=== PATIENT | male | born 1980 | race Caucasian/White ===

== ENCOUNTER 2019-09-09 17:10 | Emergency (ER) | payer OTHER ==
[~2019-09-09] VITALS: Ht 185.4 cm; Wt 88.8 kg
[2019-09-09 17:11] VITALS: BP 142/89
[2019-09-09] MEDS ORDERED: LIDOCAINE-MPF 1%, 5ML ONE (17:57)
== END 2019-09-09 19:06 | disposition home or self-care (01) ==
LOC: ED 18:50
DX: L03.114 Cellulitis of left upper limb (principal)
CPT/HCPCS: 10060; 99283

== ENCOUNTER 2019-09-14 07:51 | Emergency (ER) | payer MEDICAID ==
[~2019-09-14] VITALS: Ht 185.4 cm; Wt 87.0 kg
[2019-09-14] MEDS ORDERED: LIDOCAINE-MPF 2% ,5ML ONE (08:19)
[2019-09-14] MEDS ORDERED: LIDOCAINE-MPF 1%, 5ML ONE (08:20)
[2019-09-14] MEDS ORDERED: LIDOCAINE 1%, 2ML INFIL ONE (08:30)
--- NOTE | 2019-09-14 09:17 | NUR ---
REPORT RECEIVED FROM SERENA CAMPBELL. YOBANY SUPPLIES GIVEN TO RESIDENT .
--- NOTE | 2019-09-14 09:59 | NUR ---
PT GIVEN D/C INSTRUCTIONS, VERBALIZED UNDERSTANDING.
[2019-09-14 10:00] VITALS: BP 137/82
== END 2019-09-14 10:02 | disposition home or self-care (01) ==
LOC: ED 08:36
DX: L02.414 Cutaneous abscess of left upper limb (principal); Z90.49 Acquired absence of other specified parts of digestive tract
CPT/HCPCS: 10060; 99282; J3490

== ENCOUNTER 2020-07-11 21:32 | Emergency (ER) | payer MEDICAID ==
[~2020-07-11] VITALS: Ht 185.4 cm; Wt 80.6 kg
--- NOTE | 2020-07-11 22:44 | NUR ---
NOT IN LOBBY AT THIS TIME
--- NOTE | 2020-07-11 23:13 | NUR ---
NOT IN LOBBY X2
--- NOTE | 2020-07-11 23:48 | NUR ---
PT TO ED C/O EPIGASTRIC PAIN "FEELS LIKE THINGS GET STUCK, THERES A RIDGE IN THERE BREAD & CHIPS CANT GET PAST". PT STATES DECREASED APPETITE D/T DIFFICUTLY "GETTING FOOD TO GO ALL THE WAY DOWN". PT STATES A CHILD HE HAD REFLUX, BUT THIS FEELS DIFFERENTLY. AT . RR EVEN NON LABORED. WILL CTM. CALL LIGHT INREACH.
[2020-07-11] MEDS ORDERED: MAALOX/HYOSCYAMINE/LIDOCAINE 45 ML BTL ONE (23:54)
[2020-07-11 23:57] LABS: BASOPHILS % (AUTO) 1 % (0-1); EOSINOPHILS % (AUTO) 4 % (1-7); LYMPHOCYTES % (AUTO) 42 % (22-44); MEAN CORPUSCULAR HEMOGLOBIN 22.1 pg (27.5-34.5); MEAN PLATELET VOLUME 7.6 fL (7.4-10.4); MONOCYTES % (AUTO) 8 % (2-9); NEUTROPHILS % (AUTO) 46 % (42-75); PLATELET COUNT 390 x10^3/uL (130-400); RED BLOOD COUNT 4.21 x10^6/uL (4.38-5.82); RED CELL DISTRIBUTION WIDTH 18.8 % (9.4-14.8)
[2020-07-11 23:58] LABS: MD NO
[2020-07-12] MEDS ORDERED: MAALOX/HYOSCYAMINE/LIDOCAINE 45 ML BTL PO ONE
[2020-07-12 00:07] LABS: ALANINE AMINOTRANSFERASE 20 U/L (12-78); ANION GAP 4 mmol/L (5-15); CALCIUM 8.3 mg/dL (8.5-10.1); CHLORIDE 110 mmol/L (98-107); CREATININE 0.94 mg/dL (0.7-1.3)
[2020-07-12 00:09] LABS: ALKALINE PHOSPHATASE 111 U/L (45-117); BILIRUBIN,TOTAL 0.4 mg/dL (0.2-1.0); TOTAL PROTEIN 6.6 g/dL (6.4-8.2)
[2020-07-12] MEDS ORDERED: PANTOPRAZOLE 40 MG IV IVPush ONE (00:30)
--- NOTE | 2020-07-12 00:30 | NUR ---
PT DENIES ANY RELIEF C GI COCKTAIL, STATES "ITS HARD TO TELL IF BETTER, SINCE IM NOT EATING ANYTHING". WILL CTM.
[2020-07-12] MEDS ORDERED: PANTOPRAZOLE 40 MG IV ONE (00:44)
[2020-07-12] MEDS ORDERED: OMNIPAQUE 350 MG/ML, 100ML BOTTLE ONE (01:00)
--- NOTE | 2020-07-12 01:05 | NUR ---
PIV ESTB. MED PER MAY. PT AWARE OF PLAN FOR CT. VSS. CALL LIGHT INREACH. WILL CTM.
--- NOTE | 2020-07-12 01:31 | NUR ---
PT TO CT VIA CART
--- NOTE | 2020-07-12 01:38 | NUR ---
PT BACK FROM CT. CALL LIGHT IN REACH.
--- NOTE | 2020-07-12 02:45 | NUR ---
BEDSIDE REPORT FROM MATT CAMPBELL
[2020-07-12 03:06] VITALS: BP 128/89
--- NOTE | 2020-07-12 03:06 | NUR ---
Patient given discharge instructions and they have confirmed that they understand the instructions. Patient ambulatory with steady gait.
== END 2020-07-12 03:12 | disposition home or self-care (01) ==
LOC: ED 22:02
DX: K21.00 Gastro-esophageal reflux disease with esophagitis, without bleeding (principal); D50.0 Iron deficiency anemia secondary to blood loss (chronic); K26.7 Chronic duodenal ulcer without hemorrhage or perforation
CPT/HCPCS: 36415; 74177; 80053; 83690; 85025; 93005; 96374; 99285; C9113; Q9967